=== PATIENT | female | born 1965 | race Two or more races ===

== ENCOUNTER → 2024-09-08 07:47 | Outpatient (REF) | payer MEDICAID, SELFPAY | LOC: RAD 07:47 | PROVIDERS: ATTENDING PHYSICIAN Family Medicine; REFERRING PHYSICIAN Nurse Practitioner Adult Health | DX: R10.84 Generalized abdominal pain (principal); E01.0 Iodine-deficiency related diffuse (endemic) goiter | CPT/HCPCS: 76536; 76700 ==